=== PATIENT | female | born 1995 | race Caucasian/White ===

== ENCOUNTER 2019-08-30 19:22 | Emergency (ER) | payer BC ==
[~2019-08-30] VITALS: Ht 172.7 cm; Wt 70.0 kg
[2019-08-30] MEDS ORDERED: MILI PO (19:46)
[2019-08-30] MEDS ORDERED: SUMATRIPTAN25 MG PO (19:47)
[2019-08-30 20:12] LABS: HEMATOCRIT 38.7 % (37.0-47.0); HEMOGLOBIN 12.4 g/dl (12.0-16.0); IMMATURE GRANULOCYTES 0.4 % (0.0-5.0); MEAN CELL VOLUME 85.8 fL CALC (80.0-100.0); MEAN CORPUSCULAR HGB 27.5 pG CALC (26.0-32.0); NEUT# 5.83 thou/uL (2.00-7.15); RED BLOOD COUNT 4.51 mill/uL (4.20-5.60); RED CELL DISTRI WIDTH 12.8 % (11.5-15.5)
[2019-08-30 20:13] LABS: ALBUMIN 4.7 g/dL (3.2-5.0); ALKALINE PHOSPHATASE 66 u/l (38-126); ANION GAP 13 (6-22 (CALC)); BILIRUBIN, TOTAL 0.2 mg/dL (0.0-1.4); BUN 10 mg/dL (7-17); BUN/CREATININE RATIO 14 (12-20 (CALC)); CARBON DIOXIDE 26 mmol/l (22-30); CHLORIDE 105 mmol/l (95-108); CREATININE 0.7 mg/dL (0.5-1.0); GFR > 60 ML/MIN (>=60 (CALC)); GFR FOR AFR.AMER. > 60 ML/MIN (>=60 (CALC)); POTASSIUM 4.1 mmol/l (3.5-5.1); SGOT/AST 20 u/l (14-36); SODIUM 140 mmol/l (137-146); TOTAL PROTEIN 8.3 g/dL (6.3-8.2)
[2019-08-30 21:00] LABS: BARBITURATES NEGATIVE (NEGATIVE); COCAINE NEGATIVE (NEGATIVE); METHADONE NEGATIVE (NEGATIVE); OXCYCODONE NEGATIVE (NEGATIVE); TETRAHYDROCANNABIONOL NEGATIVE (NEGATIVE); TRICYLIC ANTIDEPRESSANTS NEGATIVE (NEGATIVE)
[2019-08-30 22:25] VITALS: BP 136/81
== END 2019-08-30 22:40 | disposition home or self-care (01) | DRG 313 ==
LOC: ED 19:22 → EDBD 19:22 → ED 19:41
PROVIDERS: Emergency Medicine
DX: R07.89 Other chest pain (principal); E28.2 Polycystic ovarian syndrome
CPT/HCPCS: Q9967

== ENCOUNTER 2020-04-26 18:53 | Emergency (ER) | payer BC ==
[~2020-04-26] VITALS: Ht 172.7 cm; Wt 89.5 kg
[~2020-04-26 18:53] MED LIST: MILI PO; SUMATRIPTAN25 MG PO
[2020-04-26] MEDS ORDERED: FERROUS FUMARATE PO (19:03)
[2020-04-26] MEDS ORDERED: AUGMENTIN500TAB PO (19:03)
[2020-04-26] MEDS ORDERED: NORETHINDRONE ACETATE PO (19:03)
[2020-04-26] MEDS ORDERED: ETHINYL ESTRADIOL PO (19:03)
[2020-04-26] MEDS ORDERED: LEXAPRO10 MG PO (19:03)
[2020-04-26] MEDS ORDERED: OFLOXACIN0.3 % AU (19:04)
[2020-04-26] MEDS ORDERED: PERCOCET 5/325M1 TAB PO (19:35)
[2020-04-26 19:50] VITALS: BP 124/74
== END 2020-04-26 19:50 | disposition home or self-care (01) | DRG 153 ==
LOC: ED 18:53
DX: H66.93 Otitis media, unspecified, bilateral (principal); H60.93 Unspecified otitis externa, bilateral